=== PATIENT | male | born 1975 | race Asian ===

== ENCOUNTER 2018-03-22 12:04 | Emergency (ER) | payer OTHER ==
[~2018-03-22] VITALS: Ht 172.7 cm; Wt 71.0 kg
[2018-03-22 12:07] VITALS: BP 114/86
[2018-03-22] MEDS ORDERED: OMEP40CA6 PO (12:33)
[2018-03-22] MEDS ORDERED: CETI10CA PO (12:33)
[2018-03-22] MEDS ORDERED: FLUT9.9S INH (12:33)
== END 2018-03-22 13:54 | disposition home or self-care (01) ==
LOC: ED 13:45
DX: S00.412A Abrasion of left ear, initial encounter (principal); S09.90XA Unspecified injury of head, initial encounter; W01.0XXA Fall on same level from slipping, tripping and stumbling without subsequent striking against object, initial encounter; Y93.89 Activity, other specified; Y92.009 Unspecified place in unspecified non-institutional (private) residence as the place of occurrence of the external cause; Y99.8 Other external cause status
CPT/HCPCS: 70450; 99284